=== PATIENT | male | born 1975 | race Two or more races ===

== ENCOUNTER 2023-04-30 09:09 | Inpatient (IN) | payer OTHER ==
[~2023-04-30] VITALS: Ht 182.9 cm; Wt 122.5 kg
[2023-04-30] MEDS ORDERED: MITIGARE0.6 MG (09:50)
[2023-04-30 10:47] LABS: URINE APPEARANCE Cloudy; URINE BILIRRUBIN Small (NEGATIVE); URINE BLOOD Moderate; URINE COLOR Dark Yellow; URINE GLUCOSE Negative (NEGATIVE); URINE LEUKOCYTE Moderate; URINE NITRATE Negative; URINE PROTEIN 30 (NEGATIVE)
[2023-04-30 10:49] LABS: HEMATOCRIT 43.7 % (39.0-48.0); HEMOGLOBIN 13.9 g/dL (13-16.00); MEAN CELL VOLUME 71.4 fL (80.0-100.00); MEAN CORPUSCULAR HEMOGLOBIN 22.7 pg (27.00-32.0); MEAN CORPUSCULAR HGB CONC 31.8 g/dl (32.0-36.0); PLATELET COUNT 162 K/uL (150-450); RED BLOOD COUNT 6.11 M/uL (4.00-6.00); RED CELL DISTRIBUTION WIDTH 14.4 % (11.5-14.5)
[2023-04-30 10:52] LABS: URINE EPITHELIAL CELLS 4.6 uL (0.0-38.8); URINE RBC 112.2 uL (0.0-20.8); URINE WBC 1428.6 uL (0.0-23.2)
[2023-04-30 11:17] LABS: BILIRUBIN TOTAL 1.38 mg/dL (0.3-1.2); CALCIUM 9.6 mg/dL (8.5-10.1); CREATININE SERUM 1.2 mg/dL (0.70-1.30); GFR 64.35; GLOBULINA 4.4 G/DL (2.4-3.5); POTASSIUM 3.81 mEq/L (3.5-5.1); TOTAL PROTEIN 8.4 gm/dL (6.4-8.2)
[2023-04-30 19:29] LABS: INR 1.17; PARTIAL THROMBOPLASTIN TIME 34.5 SECONDS (22.0-34.0); PROTHROMBIN TIME 12.1 SECONDS (9.0-11.5)
[2023-05-02 12:29] LABS: URINE APPEARANCE Clear; URINE BILIRRUBIN Negative (NEGATIVE); URINE BLOOD Trace; URINE COLOR Yellow; URINE GLUCOSE Negative (NEGATIVE); URINE LEUKOCYTE Trace; URINE NITRATE Negative; URINE PROTEIN Negative (NEGATIVE); URINE UROBILINOGEN 0.2 E.U./dl
[2023-05-02 12:32] LABS: URINE RBC 9.6 uL (0.0-20.8); URINE WBC 58.8 uL (0.0-23.2)
[2023-05-02 12:50] LABS: HEMATOCRIT 38.3 % (39.0-48.0); HEMOGLOBIN 12.3 g/dL (13-16.00); MEAN CORPUSCULAR HEMOGLOBIN 23.1 pg (27.00-32.0); MEAN CORPUSCULAR HGB CONC 32.1 g/dl (32.0-36.0); PLATELET COUNT 172 K/uL (150-450); RED BLOOD COUNT 5.32 M/uL (4.00-6.00); RED CELL DISTRIBUTION WIDTH 14.3 % (11.5-14.5)
== END 2023-05-03 09:51 | disposition home or self-care (01) | DRG 872 ==
LOC: ER 09:10 → MEDI 20:35 → SEC-K 20:35 → MEDI 05-01 01:00
PROVIDERS: Emergency Medicine; General Practice; ADMIT Internal Medicine; ATTEND Internal Medicine
PROC: BW21ZZZ Computerized Tomography (CT Scan) of Abdomen and Pelvis (ICD-10-PCS; principal; 2023-04-30)
DX: A41.9 Sepsis, unspecified organism (principal); N39.0 Urinary tract infection, site not specified; M10.9 Gout, unspecified; J20.9 Acute bronchitis, unspecified; Z20.822 Contact with and (suspected) exposure to COVID-19; B96.89 Other specified bacterial agents as the cause of diseases classified elsewhere; N20.0 Calculus of kidney

== ENCOUNTER 2023-12-09 11:13 | Emergency (ER) | payer OTHER ==
[~2023-12-09] VITALS: Ht 182.9 cm; Wt 129.3 kg
[~2023-12-09 11:13] MED LIST: MITIGARE0.6 MG
[2023-12-09 14:53] LABS: HEMATOCRIT 43.8 % (39.0-48.0); MEAN CELL VOLUME 72.8 fL (80.0-100.00); MEAN CORPUSCULAR HEMOGLOBIN 23.3 pg (27.00-32.0); PLATELET COUNT 163 K/uL (150-450); RED BLOOD COUNT 6.02 M/uL (4.00-6.00); RED CELL DISTRIBUTION WIDTH 13.9 % (11.5-14.5)
[2023-12-09 15:16] LABS: PH,URINE 5.5 (5.0-8.0); URINE APPEARANCE Clear; URINE BILIRRUBIN Negative (NEGATIVE); URINE BLOOD Trace; URINE COLOR Yellow; URINE GLUCOSE Negative (NEGATIVE); URINE LEUKOCYTE Negative; URINE NITRATE Negative; URINE PROTEIN Negative (NEGATIVE); URINE UROBILINOGEN 0.2 E.U./dl
[2023-12-09 15:17] LABS: URINE BACTERIA 6.2 uL (0.0-1933); URINE EPITHELIAL CELLS 2.6 uL (0.0-38.8); URINE RBC 18.6 uL (0.0-20.8); URINE WBC 8.1 uL (0.0-23.2)
== END 2023-12-09 16:47 | disposition home or self-care (01) ==
LOC: ER 11:14
PROVIDERS: Emergency Medicine
DX: B34.9 Viral infection, unspecified (principal); Z20.822 Contact with and (suspected) exposure to COVID-19

== ENCOUNTER 2025-02-17 11:40 | Emergency (ER) | payer OTHER ==
[~2025-02-17] VITALS: Ht 182.9 cm; Wt 129.3 kg
[2025-02-17] MEDS ORDERED: ALLOPURINOL100 MG PO (11:52)
[2025-02-17] MEDS ORDERED: KETOROLAC TROMETHAMINE 30 MG VIAL ONE (14:25)
[2025-02-17] MEDS ORDERED: ORPHENADRINE CITRATE 30 MG/ML AMPUL ONE (14:26)
[2025-02-17] MEDS ORDERED: ORPHENADRINE CITRATE 30 MG/ML AMPUL IM ONE (14:30)
[2025-02-17] MEDS ORDERED: KETOROLAC TROMETHAMINE 30 MG VIAL IM ONE (14:30)
[2025-02-17 15:10] LABS: BASO % 0.3 % (0.1-1.2); EOS # 0.04 (0.04-0.54); EOS % 0.5 % (0.7-7.0); LYMPH # 2.14 (1.18-3.74); LYMPH % 27.4 % (19.3-53.1); MEAN PLATELET VOLUME 11.20 fl (9.4-12.4); MONO # 0.44 (0.24-0.82); MONO % 5.6 % (4.7-12.5); NEUT # 5.15 (1.56-6.13); NEUT % 65.8 % (34.0-71.1); RED CELL DISTRIBUTION WIDTH 14.4 % (11.6-14.4)
[2025-02-17 15:15] LABS: COVID-19 AG NEGATIVE (NEGATIVE)
[2025-02-17] MEDS ORDERED: QC TUSSIN DM 2237 ML PO (15:42)
[2025-02-17] MEDS ORDERED: NORFLEX100MG PO (15:42)
[2025-02-17] MEDS ORDERED: DICLOFENAC SODI50 MG PO (15:42)
[2025-02-17] MEDS ORDERED: ZYRTEC10 MG PO (15:49)
[2025-02-17] MEDS ORDERED: DEXAMETHASONE SODIUM PHOSPHATE 4 MG/ML VIAL IM ONE (16:00)
[2025-02-17] MEDS ORDERED: DEXAMETHASONE SODIUM PHOSPHATE 4 MG/ML VIAL ONE (16:13)
== END 2025-02-17 16:21 | disposition home or self-care (01) ==
LOC: ER 11:40
PROVIDERS: Preventive Medicine Public Health & General Preventive Medicine
DX: B34.9 Viral infection, unspecified (principal); M54.50 Low back pain, unspecified; J00 Acute nasopharyngitis [common cold]; R05.9 Cough, unspecified; Z20.822 Contact with and (suspected) exposure to COVID-19